=== PATIENT | female | born 1980 ===

== ENCOUNTER 2017-01-04 16:59 | Emergency (ER) | payer OTHER ==
[2017-01-04 17:19] VITALS: BP 126/71; PULSE 84; RESP 18; TEMP 97.8; O2SAT 98
[2017-01-04] MEDS ORDERED: Albuterol-Ipratrop 3 mg / 0.5 (3 ml) UD INH STA (17:55)
[2017-01-04] MEDS ORDERED: Albuterol-Ipratrop 3 mg / 0.5 (3 ml) UD ONE ×2 (18:30→19:27)
[2017-01-04 19:04] LABS: BASO # 0.1 K/uL (0.0-0.2); BASO % 1.1 % (0.0-2.0); EOS # 0.9 K/uL (0.0-0.7); EOS % 6.8 % (0.0-4.0); HEMATOCRIT 39.7 % (34.0-47.0); LYMPH # 4.5 K/uL (1.0-4.3); LYMPH % 36.6 % (20.0-40.0); MEAN CELL VOLUME 92.9 fl (81.0-99.0); MEAN CORPUSCULAR HGB CONC 33.4 g/dL (33.0-37.0); MEAN PLATELET VOLUME 8.2 fl (7.2-11.7); MONO # 0.7 K/uL (0.0-0.8); MONO % 5.4 % (0.0-10.0); NEUT # 6.2 K/uL (1.8-7.0); NEUT % 50.1 % (50.0-75.0); NRBC % 0.1 % (0.0-0.0); RED CELL DISTRIBUTION WIDTH 13.5 % (11.5-14.5); WHITE BLOOD COUNT 12.4 K/uL (4.8-10.8)
--- NOTE | 2017-01-04 19:06 | ED PDOC ---
HPI: General Adult Time Seen by Provider: 01/04/17 17:51 Chief Complaint (Nursing): Shortness Of Breath Chief Complaint (Provider): Wheezing History Per: Patient Additional Complaint(s): Pt. states today she developed wheezing which was unresolved with her albuterol pump and albuterol neb x 2. Pt. has a hx of asthma with admission but no previous intubations. Denies fever, cough, chest pain, hemoptysis. Past Medical History Reviewed: Historical Data, Nursing Documentation, Vital Signs Vital Signs: Last Vital Signs Temp 97.8 F 01/04/17 17:17 Pulse 84 01/04/17 17:17 Resp 18 01/04/17 17:17 BP 126/71 01/04/17 17:17 Pulse Ox 98 01/04/17 19:08 - Medical History PMH: Asthma - Family History Family History: States: No Known Family Hx - Home Medications Home Medications: Ambulatory Orders Medication Instructions Recorded Famotidine [Pepcid] 20 mg PO Q12H #20 tab 10/12/14 Ondansetron [Zofran] 4 mg PO Q8H #10 tab 10/12/14 Albuterol 0.083% [Albuterol 0.083% 3 ml IH Q4 PRN #50 neb 01/04/17 Inhal Darlene (2.5 mg/3 ml) UD] Methylprednisolone [Medrol Dose 4 mg PO DAILY #21 mg 01/04/17 Pack (21 tabs)] - Allergies Allergies/Adverse Reactions: Allergies Allergy/AdvReac Type Severity Reaction Status Date / Time No Known Allergies Allergy Verified 10/12/14 13:57 Review of Systems ROS Statement: Except As Marked, All Systems Reviewed And Found Negative Respiratory: Positive for: Wheezing Physical Exam - Reviewed Nursing Documentation Reviewed: Yes Vital Signs Reviewed: Yes - Physical Exam Appears: Positive for: Well, Non-toxic, No Acute Distress (speaking in short but complete sentences) Head Exam: Positive for: ATRAUMATIC, NORMAL INSPECTION, NORMOCEPHALIC Skin: Positive for: Normal Color, Warm. Negative for: Rash Eye Exam: Positive for: EOMI, Normal appearance, PERRL ENT: Positive for: Normal ENT Inspection Neck: Positive for: Normal, Painless ROM Cardiovascular/Chest: Positive for: Regular Rate, Rhythm Respiratory: Positive for: Wheezing (moderate b/l expiratory wheezing ). Negative for: Accessory Muscle Use Gastrointestinal/Abdominal: Positive for: Normal Exam, Soft. Negative for: Tenderness Back: Positive for: Normal Inspection Extremity: Positive for: Normal ROM Neurologic/Psych: Positive for: Alert, Oriented - Laboratory Results Result Diagrams: 01/04/17 19:02 01/04/17 19:02 - ECG O2 Sat by Pulse Oximetry: 98 - Radiology X-Ray: Interpreted by Me (CXR) X-Ray Interpretation: No Acute Disease - Progress ED Course And Treament: Labs ordered. DuoNeb x 3, solu-medrol 125mg IV given. Re-evaluation Time: 19:51 (Lungs clear b/l. Speaking full complete sentences. ) Condition: Re-examined, Improved Disposition - Clinical Impression Clinical Impression: Bronchospasm, acute - Patient ED Disposition Is Patient to be Admitted: No - Disposition Disposition: Routine/Home Disposition Time: 19:51 Condition: IMPROVED Prescriptions: Albuterol 0.083% [Albuterol 0.083% Inhal Darlene (2.5 mg/3 ml) UD] 3 ml IH Q4 PRN # 50 neb PRN Reason: Wheezing Methylprednisolone [Medrol Dose Pack (21 tabs)] 4 mg PO DAILY #21 mg Instructions: Bronchospasm (ED)
[2017-01-04 19:17] LABS: ALB/GLOB RATIO 1.2 (1.0-2.1); ALKALINE PHOSPHATASE 59 U/L (38-126); ALT/SGPT 45 U/L (9-52); AST/SGOT 37 U/L (14-36); BILIRUBIN,TOTAL 0.3 mg/dl (0.2-1.3); BLOOD UREA NITROGEN 10 mg/dl (7-17); CALCIUM 8.9 mg/dL (8.4-10.2); CARBON DIOXIDE 21 mmol/L (22-30); CHLORIDE 107 mmol/L (98-107); GFR AFRICAN-AMERICAN > 60; GLUCOSE,RANDOM 84 mg/dL (65-105); POTASSIUM 3.8 MMOL/L (3.6-5.0); SODIUM 143 mmol/l (132-148)
--- NOTE | 2017-01-05 08:25 | RAD ---
HISTORY: wheezing COMPARISON: Comparison is made to the previous study dated 04/06/2012 TECHNIQUE: Chest PA and lateral FINDINGS: LUNGS: No active pulmonary disease. PLEURA: No significant pleural effusion identified. No pneumothorax apparent. CARDIOVASCULAR: Normal. OSSEOUS STRUCTURES: No significant abnormalities. VISUALIZED UPPER ABDOMEN: Normal. OTHER FINDINGS: None. IMPRESSION: No active disease.
--- NOTE | 2017-01-06 11:48 | CARD ---
APPROVED REPORT EKG Measurement Heart [id number] <Conclusion> Normal sinus rhythm Normal ECG
== END 2017-01-04 20:00 | disposition home or self-care (01) ==
LOC: H.ER 16:59
DX: J45.909 Unspecified asthma, uncomplicated (principal); R06.2 Wheezing

== ENCOUNTER 2017-03-09 19:47 | Emergency (ER) | payer OTHER ==
[2017-03-09] MEDS ORDERED: Sodium Chloride 0.9% 1,000 ML IV STA (20:13)
--- NOTE | 2017-03-09 20:18 | ED PDOC ---
HPI: General Adult Time Seen by Provider: 03/09/17 20:07 Chief Complaint (Nursing): Abdominal Pain Chief Complaint (Provider): fever History Per: Patient History/Exam Limitations: no limitations Onset/Duration Of Symptoms: Hrs (1) Current Symptoms Are (Timing): Still Present Recently: Treated By A Physician Additional History Per: Patient Additional Complaint(s): 36 y/o female presents for eval of fever, onset one hour prior to arrival. Patient notes nasal congestion, nonproductive cough, bodyaches x 2 days; was seen at Urgent Care earlier this evening and prescribed Zpak. Patient states she took first dose around 17:00 and 2 hours later she felt warm and stared experiencing abdominal cramping in addition to previous symptoms. Denies ear pain, throat pain, nausea/vomiting, chest pain, shortness of breath, palpitations, changes in bowel movements, dysuria, hematuria, recent travel, sick contacts. Past Medical History Reviewed: Historical Data, Nursing Documentation, Vital Signs Vital Signs: Last Vital Signs Temp 98.3 F 03/09/17 23:32 Pulse 89 03/09/17 23:32 Resp 19 03/09/17 23:32 BP 138/68 03/09/17 23:32 Pulse Ox 98 03/09/17 23:32 - Medical History PMH: Asthma - Surgical History Surgical History: No Surg Hx - Family History Family History: States: Unknown Family Hx - Living Arrangements Living Arrangements: With Family - Home Medications Home Medications: Ambulatory Orders Medication Instructions Recorded Famotidine [Pepcid] 20 mg PO Q12H #20 tab 10/12/14 Ondansetron [Zofran] 4 mg PO Q8H #10 tab 10/12/14 Albuterol 0.083% [Albuterol 0.083% 3 ml IH Q4 PRN #50 neb 01/04/17 Inhal Darlene (2.5 mg/3 ml) UD] Methylprednisolone [Medrol Dose 4 mg PO DAILY #21 mg 01/04/17 Pack (21 tabs)] Ibuprofen [Motrin Tab] 1 tab PO Q6 PRN #20 tab 03/09/17 Ondansetron ODT [Zofran ODT] 4 mg PO Q8 PRN #10 odt 03/09/17 Oseltamivir [Tamiflu] 75 mg PO BID #9 cap 03/09/17 - Allergies Allergies/Adverse Reactions: Allergies Allergy/AdvReac Type Severity Reaction Status Date / Time No Known Allergies Allergy Verified 03/09/17 19:50 Review of Systems ROS Statement: Except As Marked, All Systems Reviewed And Found Negative Constitutional: Positive for: Fever, Chills ENT: Positive for: Nose Congestion Respiratory: Positive for: Cough Gastrointestinal: Positive for: Abdominal Pain Physical Exam - Reviewed Nursing Documentation Reviewed: Yes Vital Signs Reviewed: Yes - Physical Exam Appears: Positive for: Well, Non-toxic, No Acute Distress Head Exam: Positive for: ATRAUMATIC, NORMAL INSPECTION, NORMOCEPHALIC Skin: Positive for: Normal Color Eye Exam: Positive for: Normal appearance ENT: Positive for: Nasal Congestion, Pharyngeal Erythema Cardiovascular/Chest: Positive for: Regular Rate, Rhythm Respiratory: Positive for: Normal Breath Sounds Gastrointestinal/Abdominal: Positive for: Normal Exam Back: Positive for: Normal Inspection Extremity: Positive for: Normal ROM Neurologic/Psych: Positive for: Alert, Oriented - Laboratory Results Result Diagrams: 03/09/17 20:30 03/09/17 20:55 - ECG O2 Sat by Pulse Oximetry: 99 Pulse Ox Interpretation: Normal - Radiology X-Ray: Viewed By Md X-Ray Interpretation: No Acute Disease - Progress ED Course And Treament: labs, urine, flu, strep, chest xray, IV fluids, PO tylenol On re-eval, patient states she is feeling better. Patient educated on findings, discharged with rx tamiflu (dose given in ED), ibuprofen, zofran. Advised follow up PMD 2-3 days. Fluids. Rest. Return to ED for worsening/concerning symptoms. Disposition - Clinical Impression Clinical Impression: Influenza A - Patient ED Disposition Is Patient to be Admitted: No Counseled Patient/Family Regarding: Studies Performed, Diagnosis, Need For Followup, Rx Given - Disposition Disposition: Routine/Home Disposition Time: 23:40 Condition: IMPROVED Prescriptions: Ibuprofen [Motrin Tab] 1 tab PO Q6 PRN #20 tab PRN Reason: Fever >100.4 F Ondansetron ODT [Zofran ODT] 4 mg PO Q8 PRN #10 odt PRN Reason: Nausea/Vomiting Oseltamivir [Tamiflu] 75 mg PO BID #9 cap Instructions: Influenza (ED) Forms: [facility] ED School/Work Excuse
[2017-03-09 20:38] LABS: BASO % 0.7 % (0.0-2.0); EOS % 0.4 % (0.0-4.0); HEMATOCRIT 40.3 % (34.0-47.0); LYMPH # 1.2 K/uL (1.0-4.3); LYMPH % 20.8 % (20.0-40.0); MEAN CELL VOLUME 92.2 fl (81.0-99.0); MEAN CORPUSCULAR HEMOGLOBIN 30.9 pg (27.0-31.0); MEAN CORPUSCULAR HGB CONC 33.5 g/dL (33.0-37.0); MEAN PLATELET VOLUME 8.5 fl (7.2-11.7); MONO # 0.7 K/uL (0.0-0.8); MONO % 12.2 % (0.0-10.0); NEUT % 65.9 % (50.0-75.0); RED CELL DISTRIBUTION WIDTH 13.1 % (11.5-14.5)
[2017-03-09 21:04] LABS: RBC URINE 1 /hpf (0-3); URINE BILIRUBIN NEGATIVE (NEGATIVE); URINE BLOOD SMALL (NEGATIVE); URINE COLOR STRAW (YELLOW); URINE GLUCOSE (UA) NEG (Normal); URINE KETONE 20 mg/dL (NEGATIVE); URINE LEUKOCYTE ESTERASE NEG Leu/uL (Negative); URINE PROTEIN NEGATIVE (NEGATIVE); URINE UROBILINOGEN 0.2-1.0 mg/dL (0.2-1.0); WBC URINE 1 /hpf (0-5)
[2017-03-09 21:26] LABS: ALB/GLOB RATIO 1.4 (1.0-2.1); ALKALINE PHOSPHATASE 51 U/L (38-126); ALT/SGPT 49 U/L (9-52); AST/SGOT 33 U/L (14-36); BILIRUBIN,TOTAL 0.1 mg/dl (0.2-1.3); BLOOD UREA NITROGEN 9 mg/dl (7-17); CALCIUM 8.1 mg/dL (8.4-10.2); CARBON DIOXIDE 20 mmol/L (22-30); CHLORIDE 105 mmol/L (98-107); GFR AFRICAN-AMERICAN > 60; GLUCOSE,RANDOM 79 mg/dL (65-105); LIPASE 126 U/L (23-300); POTASSIUM 3.4 MMOL/L (3.6-5.0); SODIUM 135 mmol/l (132-148); TOTAL PROTEIN 6.4 G/DL (6.3-8.2)
[2017-03-09 23:32] VITALS: BP 138/68; PULSE 89; RESP 19; TEMP 98.3
[2017-03-09 23:42] VITALS: O2SAT 99
--- NOTE | 2017-03-10 09:19 | RAD ---
HISTORY: fever, cough COMPARISON: 01/04/2017 TECHNIQUE: Chest PA and lateral FINDINGS: LUNGS: No active pulmonary disease. PLEURA: No significant pleural effusion identified. No pneumothorax apparent. CARDIOVASCULAR: Normal. OSSEOUS STRUCTURES: No significant abnormalities. VISUALIZED UPPER ABDOMEN: Normal. OTHER FINDINGS: None. IMPRESSION: No active disease.
== END 2017-03-10 00:02 | disposition home or self-care (01) ==
LOC: H.ER 19:47
DX: J10.1 Influenza due to other identified influenza virus with other respiratory manifestations (principal); R05 Cough

== ENCOUNTER 2017-04-23 23:47 | Emergency (ER) | payer OTHER ==
[2017-04-23 23:56] VITALS: BMI 21.5
[2017-04-23] MEDS ORDERED: Albuterol-Ipratrop 3 mg / 0.5 (3 ml) UD INH STA ×3 (23:56→23:57)
[2017-04-24 00:19] VITALS: BP 125/86; TEMP 98.5
--- NOTE | 2017-04-24 00:23 | ED PDOC ---
HPI: SOB/CHF/COPD Time Seen by Provider: 04/23/17 23:53 Chief Complaint (Nursing): Shortness Of Breath Chief Complaint (Provider): Shortness Of Breath History Per: Patient History/Exam Limitations: no limitations Onset/Duration Of Symptoms: Days (x1day) Associated Symptoms: Other (Dry Cough). denies: Fever, Chest Pain Additional Complaint(s): Margaret Long is a 36 year old female with a past medical history of asthma who presents to the ED for a chief complaints of difficulty breathing and wheezing onset 1 day. Reports she went to an urgent care clinic this morning and was given Albuterol to treat the symptoms. Treatment was taken at home but both the wheezing and difficulty breathing has since returned. Associated symptoms include dry coughing, but denies any fever or chest pain. Of note, patient does not have any recent admission to the ED or to the ICU. PMD: Dr. Alcazar. Past Medical History Reviewed: Historical Data, Nursing Documentation, Vital Signs Vital Signs: Last Vital Signs Temp 98.5 F 04/23/17 23:53 Pulse 73 04/24/17 01:34 Resp 14 04/24/17 01:05 BP 125/86 04/23/17 23:53 Pulse Ox 92 L 04/24/17 01:34 - Medical History PMH: Asthma - Surgical History Surgical History: No Surg Hx - Family History Family History: States: Unknown Family Hx - Home Medications Home Medications: Ambulatory Orders Medication Instructions Recorded Famotidine [Pepcid] 20 mg PO Q12H #20 tab 10/12/14 Ondansetron [Zofran] 4 mg PO Q8H #10 tab 10/12/14 Methylprednisolone [Medrol Dose 4 mg PO DAILY #21 mg 01/04/17 Pack (21 tabs)] Ibuprofen [Motrin Tab] 1 tab PO Q6 PRN #20 tab 03/09/17 Ondansetron ODT [Zofran ODT] 4 mg PO Q8 PRN #10 odt 03/09/17 Oseltamivir [Tamiflu] 75 mg PO BID #9 cap 03/09/17 Albuterol 0.083% [Albuterol 0.083% 3 ml IH Q4 PRN #50 neb 04/24/17 Inhal Darlene (2.5 mg/3 ml) UD] Albuterol HFA [Ventolin HFA 90 2 puff IH Q4 PRN #1 inh 04/24/17 mcg/actuation (8 g)] Fluticasone/Salmeterol 250/50 1 puff IH Q12 #1 inh 04/24/17 [Advair Diskus] Prednisone 50 mg PO DAILY #4 tablet 04/24/17 - Allergies Allergies/Adverse Reactions: Allergies Allergy/AdvReac Type Severity Reaction Status Date / Time No Known Allergies Allergy Verified 03/09/17 19:50 Review of Systems ROS Statement: Except As Marked, All Systems Reviewed And Found Negative Constitutional: Negative for: Fever Cardiovascular: Negative for: Chest Pain Respiratory: Positive for: Cough (Dry cough.), Shortness of Breath, Wheezing, Other (Difficulty brerathing.) Physical Exam - Reviewed Nursing Documentation Reviewed: Yes Vital Signs Reviewed: Yes - Physical Exam Appears: Positive for: Well, No Acute Distress, Uncomfortable Head Exam: Positive for: ATRAUMATIC, NORMAL INSPECTION, NORMOCEPHALIC Skin: Positive for: Normal Color, Warm, Dry Eye Exam: Positive for: Normal appearance, EOMI Neck: Positive for: Normal, Painless ROM, Supple Cardiovascular/Chest: Positive for: Regular Rate, Rhythm, Chest Non Tender. Negative for: Murmur, Tachycardia Respiratory: Positive for: Accessory Muscle Use, Wheezing (Diffused wheezing bilaterally.), Respiratory Distress. Negative for: Normal Breath Sounds Gastrointestinal/Abdominal: Positive for: Soft. Negative for: Tenderness Extremity: Negative for: Swelling (No leg swelling.) Neurologic/Psych: Positive for: Alert, Oriented - ECG ECG: Positive for: Interpreted By Me, Viewed By Me ECG Rhythm: Positive for: Normal QRS, Normal ST Segment, Sinus Rhythm. Negative for: ST/T Changes Rate: 73 O2 Sat by Pulse Oximetry: 92 (RA) Pulse Ox Interpretation: Normal - Progress Re-evaluation Time: 01:30 Condition: Re-examined, Improved Nebulizer Treatments/Peak Flow - Duonebs Number of Bronchodilator Doses given?: 3 - Steroid Treatment Steroid: IV - Clinical Response Clinical Response: Improved Comment: no dyspnea and not hypoxic with ambulation Medical Decision Making Medical Decision Makin: Initial Plan * Labs and IV ordered. * EKG * Peak Flow Pre/Post treatment * Re-Evaluation Initial Impression: Asthma Exacerbation. Scribe Attestation: Documented by Silvina oglesby as a scribe for Vianney Burks MD. Provider Scribe Attestation: All medical record entries made by the Scribe were at my direction and personally dictated by me. I have reviewed the chart and agree that the record accurately reflects my personal performance of the history, physical exam, medical decision making, and the department course for this patient. I have also personally directed, reviewed, and agree with the discharge instructions and disposition. Disposition - Clinical Impression Clinical Impression: Asthma exacerbation - Patient ED Disposition Is Patient to be Admitted: No Doctor Will See Patient In The: Office Counseled Patient/Family Regarding: Studies Performed, Diagnosis, Need For Followup - Disposition Referrals: Gustavo Alcazar MD [Staff Provider] - Disposition: Routine/Home Disposition Time: 01:32 Condition: GOOD Additional Instructions: Take your medications as instructed. Follow up with your PCP in 2-3 days. Prescriptions: Albuterol 0.083% [Albuterol 0.083% Inhal Darlene (2.5 mg/3 ml) UD] 3 ml IH Q4 PRN # 50 neb PRN Reason: Wheezing Albuterol HFA [Ventolin HFA 90 mcg/actuation (8 g)] 2 puff IH Q4 PRN #1 inh PRN Reason: Wheezing Fluticasone/Salmeterol 250/50 [Advair Diskus] 1 puff IH Q12 #1 inh Prednisone 50 mg PO DAILY #4 tablet Instructions: Asthma (ED)
[2017-04-24 01:06] VITALS: RESP 14
[2017-04-24 01:34] VITALS: PULSE 73
[2017-04-24 01:52] VITALS: O2SAT 97
--- NOTE | 2017-04-24 10:52 | CARD ---
APPROVED REPORT EKG Measurement Heart [id number] <Conclusion> Normal sinus rhythm Normal ECG
== END 2017-04-24 01:40 | disposition home or self-care (01) ==
LOC: H.ER 23:47
DX: J45.901 Unspecified asthma with (acute) exacerbation (principal)

== ENCOUNTER 2017-06-03 02:35 | Emergency (ER) | payer OTHER ==
[2017-06-03 02:36] VITALS: BMI 21.5
[2017-06-03 02:49] VITALS: BP 106/63; PULSE 81; TEMP 98.9; O2SAT 98
[2017-06-03] MEDS ORDERED: Albuterol-Ipratrop 3 mg / 0.5 (3 ml) UD IH STA (03:06)
--- NOTE | 2017-06-03 03:11 | ED PDOC ---
HPI: Asthma Time Seen by Provider: 06/03/17 02:47 Chief Complaint (Nursing): Shortness Of Breath Chief Complaint (Provider): asthma exacerbation History Per: Patient History/Exam Limitations: no limitations Onset/Duration Of Symptoms: Hrs Current Symptoms Are (Timing): Better Precipitating Factors: Weather Change Additional History Per: Patient Additional Complaint(s): 36 y/o female history of asthma presents with an exacerbation of her asthma x 3 hours. Patient states she gets an attack every time the weather changes; symptoms associated with chest tightness and wheezing. Symptoms slightly improved with 3 albuterol nebulizer treatments but still notes some constriction with her breathing, which prompted ED visit. States symptoms are similar to previous asthma exacerbations. Denies fever, cough, chest pain, palpitations, leg pain/swelling, recent travel. Past Medical History Reviewed: Historical Data, Nursing Documentation, Vital Signs Vital Signs: Last Vital Signs Temp 98.9 F 06/03/17 02:46 Pulse 81 06/03/17 02:46 Resp 17 06/03/17 02:46 BP 106/63 06/03/17 02:46 Pulse Ox 98 06/03/17 02:46 - Medical History PMH: Asthma - Family History Family History: States: Unknown Family Hx - Home Medications Home Medications: Ambulatory Orders Medication Instructions Recorded Famotidine [Pepcid] 20 mg PO Q12H #20 tab 10/12/14 Ondansetron [Zofran] 4 mg PO Q8H #10 tab 10/12/14 Methylprednisolone [Medrol Dose 4 mg PO DAILY #21 mg 01/04/17 Pack (21 tabs)] Ibuprofen [Motrin Tab] 1 tab PO Q6 PRN #20 tab 03/09/17 Ondansetron ODT [Zofran ODT] 4 mg PO Q8 PRN #10 odt 03/09/17 Oseltamivir [Tamiflu] 75 mg PO BID #9 cap 03/09/17 Albuterol 0.083% [Albuterol 0.083% 3 ml IH Q4 PRN #50 neb 04/24/17 Inhal Darlene (2.5 mg/3 ml) UD] Albuterol HFA [Ventolin HFA 90 2 puff IH Q4 PRN #1 inh 04/24/17 mcg/actuation (8 g)] Fluticasone/Salmeterol 250/50 1 puff IH Q12 #1 inh 04/24/17 [Advair Diskus] Prednisone 50 mg PO DAILY #4 tablet 04/24/17 Prednisone 50 mg PO DAILY #4 tablet 06/03/17 - Allergies Allergies/Adverse Reactions: Allergies Allergy/AdvReac Type Severity Reaction Status Date / Time No Known Allergies Allergy Verified 03/09/17 19:50 Review of Systems ROS Statement: Except As Marked, All Systems Reviewed And Found Negative Respiratory: Positive for: Wheezing Physical Exam - Reviewed Nursing Documentation Reviewed: Yes Vital Signs Reviewed: Yes - Physical Exam Appears: Positive for: Well, Non-toxic, No Acute Distress Head Exam: Positive for: ATRAUMATIC, NORMAL INSPECTION, NORMOCEPHALIC Skin: Positive for: Normal Color Eye Exam: Positive for: Normal appearance ENT: Positive for: Normal ENT Inspection Cardiovascular/Chest: Positive for: Regular Rate, Rhythm Respiratory: Positive for: Wheezing (diffuse expiratory). Negative for: Accessory Muscle Use Gastrointestinal/Abdominal: Positive for: Normal Exam Back: Positive for: Normal Inspection Extremity: Positive for: Normal ROM Neurologic/Psych: Positive for: Alert, Oriented - ECG O2 Sat by Pulse Oximetry: 98 - Progress ED Course And Treament: duoneb, IV solumedrol On re-eval, patient states she is feeling better. Wheezing improved. Patient educated on findings, discharged with rx prednisone. Advised to continue current asthma medications. Follow up PMD 2-3 days. Return to ED for worsening/concerning symptoms. Disposition - Clinical Impression Clinical Impression: Asthma exacerbation - Patient ED Disposition Is Patient to be Admitted: No Counseled Patient/Family Regarding: Studies Performed, Diagnosis, Need For Followup, Rx Given - Disposition Referrals: Gustavo Alcazar MD [Primary Care Provider] - Disposition: Routine/Home Disposition Time: 04:15 Condition: IMPROVED Prescriptions: Prednisone 50 mg PO DAILY #4 tablet Instructions: Asthma (ED) Forms: [employer] (German)
[2017-06-03] MEDS ORDERED: Albuterol-Ipratrop 3 mg / 0.5 (3 ml) UD ONE (03:24)
[2017-06-03 03:32] VITALS: RESP 22
== END 2017-06-03 04:20 | disposition home or self-care (01) ==
LOC: H.ER 02:35
DX: J45.901 Unspecified asthma with (acute) exacerbation (principal)
CPT/HCPCS: 81025; 94640; 96374; 99283; J2930